=== PATIENT | female | born 1960 ===

== ENCOUNTER 2025-02-16 06:51 | Inpatient (IN) | payer OTHER ==
[~2025-02-16] VITALS: Ht 157.5 cm; Wt 65.3 kg
[2025-02-16] MEDS ORDERED: NEURONTIN300 MG (07:08)
[2025-02-16] MEDS ORDERED: DISCOVISC DISP S1 ML (07:08)
[2025-02-16] MEDS ORDERED: REYATAZ300 MG (07:08)
[2025-02-16] MEDS ORDERED: NORVIR100 M1 (07:08)
[2025-02-16] MEDS ORDERED: CALCIO (07:09)
[2025-02-16] MEDS ORDERED: STRESS B WITH1 EACH PO (07:09)
[2025-02-16] MEDS ORDERED: OMEGA-31000 MG (07:10)
[2025-02-16] MEDS ORDERED: FOSAMAX70 MG (07:10)
[2025-02-16] MEDS ORDERED: DICLOFENAC35 MG (07:11)
[2025-02-16] MEDS ORDERED: TRAMADOL HCL50 MG (07:11)
[2025-02-16 07:29] LABS: URINE APPEARANCE Clear; URINE BILIRRUBIN Negative (NEGATIVE); URINE BLOOD Negative; URINE COLOR Yellow; URINE GLUCOSE Negative (NEGATIVE); URINE KETONE Negative (NEGATIVE); URINE LEUKOCYTE Negative; URINE NITRATE Negative; URINE PROTEIN Negative (NEGATIVE); URINE UROBILINOGEN 0.2 E.U./dl
[2025-02-16 07:33] LABS: URINE BACTERIA 7.1 uL (0.0-1933)
[2025-02-16 07:35] LABS: COVID-19 AG NEGATIVE (NEGATIVE)
[2025-02-16 07:36] VITALS: BP 135/81
[2025-02-16 07:47] LABS: URINE CAST 0.00 uL (0.0-1.40); URINE EPITHELIAL CELLS 0.3 uL (0.0-38.8); URINE RBC 0.4 uL (0.0-20.8); URINE WBC 0.4 uL (0.0-23.2)
[2025-02-16 07:53] LABS: BASO % 0.2 % (0.1-1.2); EOS # 0.06 (0.04-0.54); EOS % 1.2 % (0.7-7.0); LYMPH # 1.57 (1.18-3.74); LYMPH % 31.3 % (19.3-53.1); MEAN PLATELET VOLUME 10.10 fl (9.4-12.4); MONO # 0.26 (0.24-0.82); MONO % 5.2 % (4.7-12.5); NEUT # 3.10 (1.56-6.13); NEUT % 61.7 % (34.0-71.1); RED CELL DISTRIBUTION WIDTH 12.2 % (11.6-14.4)
[2025-02-16 08:44] LABS: INR 0.97
[2025-02-16 09:23] LABS: BUN CREA RATIO 16.0 (7.0-25.0); CREATININE SERUM 0.49 mg/dL (0.55-1.02); GFR 127.97; GLUCOSE FASTING 90.0 mg/dL (65-100); OSMOLALITY SERUM 287.0 MOSM/KG (275-295)
[2025-02-16 09:24] LABS: BILIRUBIN TOTAL 2.16 mg/dL (0.3-1.2); CHOL HDL RATIO 2.4 (0-5.0); GLOBULINA 3.8 G/DL (2.4-3.5); HDL 63.0 mg/dl (40-60); LDL 60.0 mg/dl (0-130); VLDL 28.0 (0-39)
[2025-02-16 09:25] LABS: ALT/SGPT 21.0 U/L (12-78); AST/SGOT 19.0 U/L (15-37)
[2025-02-16 09:38] LABS: RH POSITIVE
[2025-02-24] MEDS ORDERED: BUPIVACAINE HCL 30 ML VIAL IJ ONE (12:45)
[2025-02-24] MEDS ORDERED: CEFAZOLIN SODIUM 1,000 MG VIAL IV ONE (12:45)
[2025-02-24] MEDS ORDERED: TRANEXAMIC ACID 100MG/1ML (1000MG) AMPUL IV ONE (12:45)
[2025-02-24] MEDS ORDERED: LIDOCAINE HCL 1%/EPINEPHRINE 20ML VIAL IJ ONE (12:45)
[2025-02-24] MEDS ORDERED: VANCOMYCIN HCL 1,000 MG VIAL IR ONE (13:30)
[2025-02-24] MEDS ORDERED: OxyCODONE HCL 5 MG TABLET (ROXICODONE) PO PRN (15:15)
[2025-02-24] MEDS ORDERED: SODIUM CHLORIDE 0.45 % 1,000 ML IV SCH (15:15)
[2025-02-24] MEDS ORDERED: ONDANSETRON HCL 2 MG/ML VIAL IV PRN (15:15)
[2025-02-24] MEDS ORDERED: MORPHINE SULFATE 4 MG/ML CARTRIDGE IV PRN (15:15)
[2025-02-24] MEDS ORDERED: MORPHINE SULFATE 4 MG/ML VIAL IV ONE ×2 (16:35→17:30)
[2025-02-24] MEDS ORDERED: GABAPENTIN 300 MG CAPSULE PO SCH (17:00)
[2025-02-24] MEDS ORDERED: CEFAZOLIN SODIUM 1,000 MG VIAL IV SCH (17:00)
[2025-02-24] MEDS ORDERED: ACETAMINOPHEN 500 MG GEL..CAP PO SCH (18:00)
[2025-02-24 21:28] VITALS: BP 128/69
[2025-02-25] VITALS: BP 118/71
[2025-02-25 06:50] LABS: BASO % 0.1 % (0.1-1.2); EOS # 0.01 (0.04-0.54); EOS % 0.1 % (0.7-7.0); LYMPH # 1.01 (1.18-3.74); LYMPH % 13.5 % (19.3-53.1); MEAN PLATELET VOLUME 10.00 fl (9.4-12.4); MONO # 0.62 (0.24-0.82); MONO % 8.3 % (4.7-12.5); NEUT # 5.81 (1.56-6.13); NEUT % 77.6 % (34.0-71.1); RED CELL DISTRIBUTION WIDTH 11.9 % (11.6-14.4)
[2025-02-25] MEDS ORDERED: ELIQUIS2.5 MG PO (08:37)
[2025-02-25] MEDS ORDERED: PERCOCET 5-3251 EACH PO (08:37)
[2025-02-25] MEDS ORDERED: CEFADROXIL500 MG PO (08:37)
[2025-02-25] MEDS ORDERED: SENNOSIDES 1 TAB TABLET PO SCH (09:00)
[2025-02-25] MEDS ORDERED: APIXABAN 2.5 MG TABLET PO SCH (09:00)
[2025-02-25 09:03] VITALS: BP 120/68
[2025-02-25 15:43] LABS: COVID-19 AG NEGATIVE (NEGATIVE)
[2025-02-25 16:31] LABS: ALT/SGPT 17.0 U/L (12-78); AST/SGOT 20.0 U/L (15-37); BILIRUBIN TOTAL 2.41 mg/dL (0.3-1.2); BUN CREA RATIO 15.0 (7.0-25.0); CREATININE SERUM 0.52 mg/dL (0.55-1.02); GFR 119.49; GLOBULINA 3.3 G/DL (2.4-3.5); GLUCOSE FASTING 97.0 mg/dL (65-100); OSMOLALITY SERUM 270.0 MOSM/KG (275-295)
[2025-02-25] MEDS ORDERED: Cyanocobalamin/Mecobalamin 1 TAB.SL SL SCH (17:00)
[2025-02-25] MEDS ORDERED: SOD FERRIC GLUC COMPLX/SUCROSE 62.5 MG/5 ML AMPUL IV SCH (17:00)
[2025-02-25 17:45] VITALS: BP 131/66
[2025-02-26 00:41] VITALS: BP 128/71
[2025-02-26 08:00] VITALS: BP 120/64
[2025-02-26] MEDS ORDERED: IRON FUM,PS/FOLIC ACID/VITC/B3 1 CAP CAPSULE PO SCH (09:00)
[2025-02-26 09:24] LABS: BASO % 0.2 % (0.1-1.2); EOS # 0.01 (0.04-0.54); EOS % 0.1 % (0.7-7.0); LYMPH # 1.46 (1.18-3.74); LYMPH % 17.0 % (19.3-53.1); MEAN PLATELET VOLUME 10.80 fl (9.4-12.4); MONO # 0.66 (0.24-0.82); MONO % 7.7 % (4.7-12.5); NEUT # 6.39 (1.56-6.13); NEUT % 74.6 % (34.0-71.1); RED CELL DISTRIBUTION WIDTH 12.1 % (11.6-14.4)
[2025-02-26 19:25] VITALS: BP 106/69
[2025-02-27 00:32] VITALS: BP 118/59
[2025-02-27 08:00] VITALS: BP 108/68
== END 2025-02-27 17:15 | disposition home or self-care (01) | DRG 470 ==
LOC: SURH 02-24 07:30 → OB/GYN 02-24 08:00 → O/R 02-24 08:00 → SURH 02-24 09:45 → OB/GYN 02-24 14:57
PROVIDERS: ADMIT Orthopaedic Surgery; ATTEND Orthopaedic Surgery
PROC: 0MN Bursae and Ligaments, Release (ICD-10-PCS; 2025-02-24)
PROC: 0SRD0J9 Replacement of Left Knee Joint with Synthetic Substitute, Cemented, Open Approach (ICD-10-PCS; principal; 2025-02-24 09:45)
DX: M17.12 Unilateral primary osteoarthritis, left knee (principal); D62 Acute posthemorrhagic anemia; M22.12 Recurrent subluxation of patella, left knee; Z21 Asymptomatic human immunodeficiency virus [HIV] infection status